=== PATIENT | male | born 1960 | race Caucasian/White ===

== ENCOUNTER → 2017-05-13 | Outpatient (CLI) | payer OTHER ==
--- NOTE | 2017-05-13 11:17 | RAD ---
Right ankle, 3 views, 05/13/2017: History: Ankle sprain There is mild soft tissue swelling over the lateral malleolus. No fracture or dislocation is identified. There is minimal spurring at the ankle joint. IMPRESSION: No acute bony abnormality is detected.
== END | disposition home or self-care (01) ==
LOC: DXRADRC 10:33
PROVIDERS: ATTEND General Practice
DX: S93.401A Sprain of unspecified ligament of right ankle, initial encounter (principal); M25.871 Other specified joint disorders, right ankle and foot; X58.XXXA Exposure to other specified factors, initial encounter; Y93.89 Activity, other specified; Y92.89 Other specified places as the place of occurrence of the external cause; Y99.8 Other external cause status
CPT/HCPCS: 73610

== ENCOUNTER 2021-06-04 20:49 | Emergency (ER) | payer MEDICAID, OTHER ==
[~2021-06-04] VITALS: Ht 172.7 cm; Wt 93.1 kg
[2021-06-04 22:27] VITALS: BP 144/98
[2021-06-05] MEDS ORDERED: CLINDAMYCIN HCL 150 MG CAPSULE PO ONE
--- NOTE | 2021-06-05 00:38 | PHYS DOC ---
Past History Past Surgical History: Other Additional Past Surgical Histo: bilat shoulder shoulder, wrist surgery, umbilical hernia Alcohol Use: Occasionally Adult General Chief Complaint Chief Complaint: WOUND CHECK HPI HPI Patient is a 60-year-old male who presents with a chief complaint of redness and swelling around elbow that is been there for several days. Denies any recent traumas, illnesses, fevers, chest pain, shortness of breath, abdominal pain, nausea, vomiting. Denies any recent traumas or travels. Denies any known ill contacts. Current Medications Current Medications Current Medications Medications (Trade) Dose Ordered Sig/Dipak Start Time Stop Time Status Last Admin Dose Admin Clindamycin HCl (Cleocin) 450 mg 1X ONCE 06/05/21 00:00 06/05/21 00:01 DC 06/04/21 23:40 450 MG Allergies Allergies Allergies Coded Allergies Type Severity Reaction Last Updated Verified No Known Drug Allergies 06/04/21 No Physical Exam Physical Exam Patient awake alert oriented in no acute distress Normocephalic atraumatic Normal sinus rhythm No respiratory distress Alert and oriented in no acute distress, GCS of 15 Patient with approximately 3 cm in circumference erythematous raised indurated lesion suggestive of cellulitis. Current Patient Data Vital Signs Vital Signs Date Time Temp Pulse Resp B/P (MAP) Pulse Ox O2 Delivery O2 Flow Rate FiO2 06/04/21 22:27 77 18 144/98 (113) 98 Room Air 06/04/21 22:04 98.4 EKG EKG [] Radiology/Procedures Radiology/Procedures [] Heart Score C/O Chest Pain: N/A Risk Factors: Risk Factors: DM, Current or recent (<one month) smoker, HTN, HLP, family history of CAD, obesity. Risk Scores: Risk Factors: DM, Current or recent (<one month) smoker, HTN, HLP, family history of CAD, obesity. Course & Med Decision Making Course & Med Decision Making Patient is a 60-year-old male who presents with a chief complaint of swelling, and redness on arm Vital signs notable for hypertension. Physical exam noted above. Denied need for pain medicine at this time. Started on clindamycin for cellulitis Dragon Disclaimer Dragon Disclaimer This electronic medical record was generated, in whole or in part, using a voice recognition dictation system. Departure Departure: Impression: Primary Impression: Cellulitis Disposition: AGAINST MEDICAL ADVICE Condition: STABLE Referrals: MO LAM MD (PCP) JOHN ODELL MD Jun 05, 2021 00:38
== END 2021-06-05 00:40 | disposition left against medical advice (07) ==
LOC: ER 20:49
DX: L03.114 Cellulitis of left upper limb (principal)
CPT/HCPCS: 99283